=== PATIENT | male | born 1960 | race Two or more races ===

== ENCOUNTER 2021-02-06 10:03 | Outpatient (REF) | payer BC, SELFPAY ==
[2021-02-06 13:50] LABS: Hematocrit 46.4 % (42-52); Hemoglobin 15.7 g/dl (14.0-18.0); Mean Corpuscular HGB Conc 33.8 g/dl (31.0-36.0); Mean Corpuscular Hemoglobin 30.4 pg (27.0-33.0); Mean Corpuscular Volume 89.9 fL (80-98); Mean Platelet Volume 10.9 fL (9.4-12.4); Platelet Count 291 X10*3/uL (160-400); Red Blood Count 5.16 X10*6/uL (4.60-5.80); Red Cell Distribution Width 12.2 % (11.0-16.0); White Blood Count 9.3 X10*3/uL (4.8-10.8)
[2021-02-06 13:59] LABS: Estimated Average Glucose 303 mg/dL; Hemoglobin A1c % 12.2 %
[2021-02-06 14:02] LABS: Glucose Urine UA >=1000 MG/DL (NEG); Leukocyte Esterase Urine NEG (NEG); Nitrite Urine NEG (NEG); PH 5.5 (5.0-8.0); Specific Gravity - Urine 1.015 (1.005-1.025); Urine Blood NEG (NEG); Urine Ketones NEG (NEG); Urine Protein NEG (NEG-TRACE)
[2021-02-06 14:15] LABS: Appearance Urine CLEAR; Color Urine YELLOW
[2021-02-06 14:36] LABS: RBC Urine 0 /HPF (0); WBC Urine 0 /HPF (0-4)
[2021-02-06 14:42] LABS: Alanine Aminotransferase 55 U/L (0-40); Albumin Level 4.3 g/dL (3.5-5.0); Alkaline Phosphatase 76 U/L (39-117); Anion Gap 15 (12-20); Aspartate Amino Transferase 27 U/L (5-37); Bilirubin Direct 0.2 mg/dL (0.0-0.5); Bilirubin Total 0.4 mg/dL (0.0-1.0); Blood Urea Nitrogen 15 mg/dL (9-16); C Reactive Protein 0.62 mg/dL (< or = 0.50); Calcium 9.6 mg/dL (8.4-10.2); Carbon Dioxide 27 mmol/L (22-29); Chloride 99 mmol/L (96-108); Cholesterol 163 mg/dL; Estimated Glomerular Filt Rate 54; HDL Cholesterol 32 mg/dL; LDL Cholesterol Calculated 83 mg/dl; Potassium 4.9 mmol/L (3.3-5.1); Sodium 136 mmol/L (135-145); Total Protein 7.3 g/dL (6.5-8.0); Triglycerides 241 mg/dL
[2021-02-06 14:46] LABS: Glucose Random 466 mg/dL (60-115)
[2021-02-06 14:51] LABS: Thyroid Stimulating Hormone 1.64 uIU/mL (0.32-4.0)
[2021-02-10 14:21] LABS: Vitamin D 25-OH, D2 <4 ng/mL; Vitamin D 25-OH, D3 24 ng/mL; Vitamin D 25-OH, Total 24 ng/mL (30-100)
== END 2021-02-06 10:04 | disposition home or self-care (01) ==
LOC: HO.10HDL 10:03
PROVIDERS: Visit Provider Internal Medicine
DX: I10 Essential (primary) hypertension (principal); E11.65 Type 2 diabetes mellitus with hyperglycemia; E11.39 Type 2 diabetes mellitus with other diabetic ophthalmic complication
CPT/HCPCS: 36415; 80048; 80061; 80076; 81001; 81003; 82306; 83036; 84443; 85027; 86140

== ENCOUNTER 2023-04-17 13:31 | Outpatient (REF) | payer BC, SELFPAY ==
[2023-04-17 17:25] LABS: Urine Cytology See Pathology rpt
== END 2023-04-17 13:32 | disposition home or self-care (01) ==
LOC: HO.LAB 13:31
PROVIDERS: PCP Internal Medicine; Visit Provider Urology
DX: R31.29 Other microscopic hematuria (principal); N48.1 Balanitis
CPT/HCPCS: 88112

== ENCOUNTER 2023-04-22 07:46 | Outpatient (REF) | payer BC, SELFPAY ==
[2023-04-22 10:42] LABS: Appearance Urine Clear; Color Urine Yellow; Glucose Urine UA >=1000 mg/dL (Negative); Leukocyte Esterase Urine Negative (Negative); Nitrite Urine Negative (Negative); PH 5.5 (5.0-9.0); Specific Gravity - Urine 1.025 (1.005-1.025); UMIC TRIGGER UA YES; Urine Blood Negative (Negative); Urine Ketones Negative (Negative); Urine Protein Negative (Neg-Trace)
[2023-04-22 10:44] LABS: Bacteria Urine None Seen (None Seen); Hyaline Casts Urine 0-2 /LPF (0-2); RBC Urine 0-2 /HPF (0-2); Squamous Epithelial Cell Urine 0-2 /HPF (0-2); WBC Urine 0-5 /HPF (0-5)
[2023-04-22 11:50] LABS: PSA,Total (Free>4and<10) 0.54 ng/mL (0.00-4.00)
== END 2023-04-22 07:47 | disposition home or self-care (01) ==
LOC: HO.10HDL 07:46
PROVIDERS: Visit Provider Urology
DX: N48.1 Balanitis (principal); R31.29 Other microscopic hematuria; Z12.5 Encounter for screening for malignant neoplasm of prostate
CPT/HCPCS: 36415; 81001; 84153

== ENCOUNTER 2023-05-03 13:17 | Outpatient (REF) | payer BC, SELFPAY ==
--- NOTE | ~2023-05-03 | US_ITS ---
EXAMINATION: US RETROPERITONEAL COMPLETE (RENAL) CLINICAL INFORMATION: Other microscopic hematuria. COMPARISON: None available. TECHNIQUE: Real-time imaging of the kidneys and bladder. FINDINGS: RIGHT KIDNEY: 11.2 x 5.3 x 6.4 cm (SAG x AP x TRV). The kidney is normal in size, contour, and echogenicity. Renal cortical thickness is normal. No calculi or focal parenchymal lesions. No hydronephrosis. LEFT KIDNEY: 11.0 x 5.6 x 4.6 cm (SAG x AP x TRV). The kidney is normal in size, contour, and echogenicity. Renal cortical thickness is normal. No calculi or focal parenchymal lesions. No hydronephrosis. BLADDER: Well distended and normal. Bilateral ureteral jets are demonstrated. Prevoid bladder volume is 171.9 mL. Postvoid bladder volume is 4.8 mL. ADDITIONAL FINDINGS: The prostate measures 41 mL. US/US retroperitoneal comp IMPRESSION: Normal renal and bladder ultrasound. Enlarged prostate.
== END 2023-05-03 13:18 | disposition home or self-care (01) ==
LOC: HO.US 13:17
PROVIDERS: PCP Internal Medicine; Visit Provider Urology
DX: R31.29 Other microscopic hematuria (principal)
CPT/HCPCS: 76770

== ENCOUNTER 2023-05-03 14:31 | Outpatient (REF) | payer BC, SELFPAY ==
[2023-05-03 14:46] LABS: MANUAL DIFF FLAG NO
[2023-05-03 15:35] LABS: Basophils Absolute Auto 0.1 X10*3/uL (0.0-0.2); Basophils Percent Auto 0.7 % (0-2); Eosinophils Absolute Auto 0.2 X10*3/uL (0.0-0.4); Eosinophils Percent Auto 1.9 % (0-4); Hematocrit 46.9 % (42.0-52.0); Hemoglobin 15.4 g/dl (14.0-18.0); Imm Gran Abs Auto 0.08 X10*3/uL (0.00-0.03); Imm Gran Pct Auto 0.6 % (0.0-0.4); Lymphocytes Absolute Auto 2.6 X10*3/uL (1.2-4.9); Lymphocytes Percent Auto 20.2 % (20-40); Mean Corpuscular HGB Conc 32.8 g/dl (31.0-36.0); Mean Corpuscular Hemoglobin 30.6 pg (27.0-33.0); Mean Corpuscular Volume 93.1 fL (80.0-98.0); Mean Platelet Volume 9.8 fL (9.4-12.4); Monocytes Percent Auto 7.9 % (2-11); Neutrophils Absolute Auto 8.7 x10*3/uL (2.0-8.3); Neutrophils Percent Auto 68.7 % (45-73); Platelet Count 329 X10*3/uL (160-400); Red Blood Count 5.04 X10*6/uL (4.60-5.80); Red Cell Distribution Width 12.8 % (11.0-16.0); White Blood Count 12.6 X10*3/uL (4.8-10.8)
[2023-05-03 15:58] LABS: Alanine Aminotransferase 52 U/L (0-40); Albumin Level 4.2 g/dL (3.5-5.0); Alkaline Phosphatase 63 U/L (39-117); Anion Gap 13 (12-20); Aspartate Amino Transferase 29 U/L (5-37); Bilirubin Total 0.5 mg/dL (0.0-1.0); Blood Urea Nitrogen 17 mg/dL (9-16); Calcium 9.7 mg/dL (8.4-10.2); Carbon Dioxide 28 mmol/L (22-29); Chloride 101 mmol/L (96-108); Estimated Glomerular Filt Rate 56; Glucose Random 137 mg/dL (60-115); Potassium 4.3 mmol/L (3.3-5.1); Sodium 138 mmol/L (135-145)
== END 2023-05-03 14:32 | disposition home or self-care (01) ==
LOC: HO.LAB 14:31
PROVIDERS: PCP Internal Medicine; Visit Provider Nurse Practitioner
DX: Z01.818 Encounter for other preprocedural examination (principal); E11.39 Type 2 diabetes mellitus with other diabetic ophthalmic complication; E11.65 Type 2 diabetes mellitus with hyperglycemia; G47.33 Obstructive sleep apnea (adult) (pediatric); E66.9 Obesity, unspecified
CPT/HCPCS: 36415; 80053; 85025

== ENCOUNTER 2023-05-14 08:53 | Day surgery (SDC) | payer BC, SELFPAY ==
[2023-05-10 10:39] VITALS: BMI 30.6
--- NOTE | 2023-05-13 10:26 | HO.ANESPROP2 ---
Documented by User: Susan Galindo NP 05/13/23 10:28 HPI - Anesthesia Eval Consult details Narrative: 62yo M for Circumcision PMFSH Active Problems Active Problems: All Active Problems (Updated 05/03/23 @ 14:16 by DANIEL Mooney) Tubular adenoma of colon (Acute) Pre-op examination (Acute) Screening PSA (prostate specific antigen) (Acute) Microscopic hematuria (Acute) Balanitis (Acute) Obstructive sleep apnea (Acute) Hypercholesterolemia (Acute) Obesity (BMI 30.0-34.9) (Acute) Essential (primary) hypertension (Acute) DM (diabetes mellitus) type II uncontrolled with eye manifestation (Acute) Past Medical History Medical History DM (diabetes mellitus) type II uncontrolled with eye manifestation Essential (primary) hypertension Hypercholesterolemia Obstructive sleep apnea Family History Family History Mother No problems noted. Father No problems noted. 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 Cognitive needs: No Hearing needs: No Vision needs: Yes (Glasses) Meds Allergies Allergy/AdvReac Type Severity Reaction Status Date / Time penicillin V Allergy Unknown rash and Verified 05/14/23 10:05 fever tetracycline Allergy Unknown red rash Verified 05/14/23 10:05 on body and inflammation Exam Exam Date and Time: May 13, 2023 1026 Height,Weight and Vital Signs: Height 5 ft 8 in Weight 91.172 kg Pertinent Lab Results Pertinent Lab Results: Laboratory Tests 05/03/23 05/03/23 14:45 14:45 WBC 12.6 H Hgb 15.4 Hct 46.9 Plt Count 329 Sodium 138 Potassium 4.3 Chloride 101 Carbon Dioxide 28 BUN 17 H Creatinine 1.31 Assessment and Plan Assessment Anesthesia Assessment: Chart Reviewed Documented by User: Le Manjarrez MD 05/14/23 12:07 [facility] Past Medical History Medical History DM (diabetes mellitus) type II uncontrolled with eye manifestation Essential (primary) hypertension Hypercholesterolemia Obstructive sleep apnea Family History Family History Mother No problems noted. Father No problems noted. 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 Cognitive needs: No Hearing needs: No Vision needs: Yes (Glasses) Meds Allergies Allergy/AdvReac Type Severity Reaction Status Date / Time penicillin V Allergy Unknown rash and Verified 05/14/23 10:05 fever tetracycline Allergy Unknown red rash Verified 05/14/23 10:05 on body and inflammation Exam Airway Mallampati Class: II TM Dist: >3cm Neck ROM: Full Assessment and Plan Assessment Anesthesia Assessment: Anesthesia Plan Discussed Final Anesthetic Review Family History of Problems with Anesthesia: No History of Problems with Anesthesia: No NPO: Yes ASA Class: III Final Preanesthetic Review: No Changes in Pt Med Stat, Meds/Allgs Chart Reviewed, Consent Obtained/Reviewed and Anes Risks/Benef Reviewed Patient Risk: Intermediate Procedure Risk: Low Anesthetic Plan Anesthetic Plan: GA Disposition: Standard PACU
[2023-05-14] MEDS: Lactated Ringers 1,000 ML 100 ML IVCONT (10:11)
[2023-05-14 10:23] VITALS: BP 156/83; PULSE 77; RESP 18; TEMP 36.4; O2SAT 97
[2023-05-14 10:29] LABS: Glucose, Whole Blood 134 mg/dL (60-115)
--- NOTE | 2023-05-14 12:24 | MHC.SHP ---
Pre-Procedural Eval Section A Date of Service: 05/14/23 The patient is an INPATIENT: No The History & Physical has been completed within 30 days and I have reviewed it.: Yes Section B Chief Complaint: Balanitis Allergies: Allergies Allergy/AdvReac Type Severity Reaction Status Date / Time penicillin V Allergy Unknown rash and Verified 05/14/23 10:05 fever tetracycline Allergy Unknown red rash Verified 05/14/23 10:05 on body and inflammation Plan Diagnosis/Plan: Unchanged (Phimosis) I have reviewed the history and physical and performed a pertinent physical examination on my patient. No changes have occurred unless specified. Circumcision. risks discussed including, but not limited to infection, bleeding Time Spent With Patient Time: Total time managing care of this patient today ____ minutes.
[2023-05-14 14:05] VITALS: BP 140/88; PULSE 83; RESP 16; TEMP 36.2; O2SAT 99
[2023-05-14 14:10] VITALS: BP 134/87; PULSE 85; RESP 16; O2SAT 93
--- NOTE | 2023-05-14 14:13 | W.PM.OPN ---
Operative Note Operative Note Date of Service: 05/14/23 Narrative: PreOperative Diagnosis:? ? Balanitis, phimosis Post Operative Diagnosis:?Balanitis, phimosis Procedure:?Circumcision Surgeon:?Dr Crispin De Luna Anesthesia:? General Procedure: After informed consent was verified the patient was brought to the operating room and placed in a supine position.? Anesthesia was performed per protocol. The patient was prepped and draped in the usual sterile fashion. Safety pause time-out was performed. Antibiotics confirmed. Penile block was performed. With the foreskin over the glans a circumferential incision is made at the level of the roy. The fore skin was then retracted and a circumferential incision was made 0.5 cm below the roy. The foreskin is removed with cautery. The skin is closed in 4 quadrants with 4-0 chromic, each quadrant closed with interrupted 4-0 chromic, bacitracin ointment was used over the incision and incision covered with cling. The patient tolerated the procedure well and was transferred to the recovery area upon completion. Complications: None
[2023-05-14 14:15] VITALS: BP 128/85; PULSE 88; RESP 16; O2SAT 95
[2023-05-14 14:24] VITALS: BP 133/95; PULSE 89; RESP 16; O2SAT 94
[2023-05-14 14:39] VITALS: BP 150/98; PULSE 84; RESP 16; TEMP 36.2; O2SAT 96
== END 2023-05-14 15:08 | disposition home or self-care (01) ==
PROVIDERS: PCP Internal Medicine; Visit Provider Urology
PROC: (CPT 54161; principal; 2023-05-14 11:00)
DX: N48.1 Balanitis (principal); N47.1 Phimosis; R31.29 Other microscopic hematuria; I10 Essential (primary) hypertension; E78.00 Pure hypercholesterolemia, unspecified; G47.33 Obstructive sleep apnea (adult) (pediatric); E11.39 Type 2 diabetes mellitus with other diabetic ophthalmic complication; Z88.0 Allergy status to penicillin; Z88.1 Allergy status to other antibiotic agents
CPT/HCPCS: 54161; 82947; 88304; J0690; J2250; J2795; J3010

== ENCOUNTER → 2023-05-21 09:28 | Outpatient (BNVA) | payer BC, SELFPAY | PROVIDERS: PCP Internal Medicine; Visit Provider Urology ==

== ENCOUNTER 2023-07-10 07:30 | Outpatient (REF) | payer BC, SELFPAY ==
[2023-07-10 10:39] LABS: Appearance Urine Clear; Color Urine Dark Yellow; Glucose Urine UA 250 mg/dL (Negative); Leukocyte Esterase Urine Negative (Negative); Nitrite Urine Negative (Negative); PH 5.5 (5.0-9.0); Urine Blood Negative (Negative); Urine Ketones Trace mg/dL (Negative); Urine Protein Trace mg/dL (Neg-Trace)
[2023-07-10 10:44] LABS: Hematocrit 47.7 % (42.0-52.0); Hemoglobin 15.5 g/dl (14.0-18.0); Mean Corpuscular HGB Conc 32.5 g/dl (31.0-36.0); Mean Corpuscular Volume 92.3 fL (80.0-98.0); Mean Platelet Volume 10.3 fL (9.4-12.4); Platelet Count 359 X10*3/uL (160-400); Red Blood Count 5.17 X10*6/uL (4.60-5.80); Red Cell Distribution Width 12.6 % (11.0-16.0); White Blood Count 12.5 X10*3/uL (4.8-10.8)
[2023-07-10 11:15] LABS: Alanine Aminotransferase 41 U/L (0-40); Albumin Level 4.1 g/dL (3.5-5.0); Alkaline Phosphatase 59 U/L (39-117); Anion Gap 13 (12-20); Aspartate Amino Transferase 26 U/L (5-37); Bilirubin Direct 0.1 mg/dL (0.0-0.5); Bilirubin Total 0.3 mg/dL (0.0-1.0); Blood Urea Nitrogen 14 mg/dL (9-16); Calcium 9.7 mg/dL (8.4-10.2); Carbon Dioxide 28 mmol/L (22-29); Chloride 103 mmol/L (96-108); Cholesterol 145 mg/dL; Estimated Glomerular Filt Rate 59; Glucose Random 155 mg/dL (60-115); HDL Cholesterol 34 mg/dL; LDL Cholesterol Calculated 61 mg/dl; Potassium 3.9 mmol/L (3.3-5.1); Sodium 140 mmol/L (135-145); Total Protein 7.3 g/dL (6.5-8.0); Triglycerides 250 mg/dL
[2023-07-10 11:19] LABS: Creatinine Urine 211.54 mg/dL; Microalbum/Creatinine Ratio Ur 12.2 ug/mg cr
== END 2023-07-10 07:31 | disposition home or self-care (01) ==
LOC: HO.10HDL 07:30
PROVIDERS: Visit Provider Internal Medicine
DX: E11.39 Type 2 diabetes mellitus with other diabetic ophthalmic complication (principal); E11.65 Type 2 diabetes mellitus with hyperglycemia; N48.1 Balanitis
CPT/HCPCS: 36415; 80048; 80061; 80076; 81003; 82043; 84443; 85027

== ENCOUNTER 2023-07-11 13:16 | Outpatient (AMB) | payer BC, SELFPAY ==
--- NOTE | 2023-07-11 13:22 | MHC.PC.OV ---
Vital Signs 07/11/23 13:23 Height 5 ft 8 in Weight 199 lb BMI 30.3 BP 122/62 Blood Pressure Location Lt brachial Position Sitting Pulse 86 Pulse Source Pulse Oximeter Pulse Oximetry (%) 96 Oxygen Delivery Method Room Air Intake Visit Reasons: 3mth f/u Labs Intake Note: Patient is here to follow up on DM, HTN, Hypercholesterolemia. [place]ior Machine Tender Required: No Manager Market Development: Not Required per policy Accompanied by: Self / Same As Patient Allergies penicillin V Allergy (Unknown, Verified 07/11/23 13:30) rash and fever tetracycline Allergy (Unknown, Verified 07/11/23 13:30) red rash on body and inflammation empagliflozin [From Jardiance] Adverse Reaction (Intermediate, Verified 07/11/23 13:30) Abdominal Pain Tobacco use date assessed: 07/11/23 Dental Screening Dental Screen Date: 07/11/23 Did you have a dental visit in the last 12 months?: No Did you have a dental problem in the last 6 months where you did not have access to dental care?: No Was dental information given to patient?: No HPI 3mth f/u Labs HPI Details 62-year-old male presents to the office to discuss his medical issues. Patient reports that he had a successful circumcision since last office visit. The increased dosage of Jardiance was giving him cramping in the abdomen and he stopped taking the medication. He reports that his blood sugars have been in range. He is able to function and do all activities of daily living. His colonoscopy is scheduled for August of this year. [facility] Medical History DM (diabetes mellitus) type II uncontrolled with eye manifestation Essential (primary) hypertension Hypercholesterolemia Obstructive sleep apnea Surgical History H/O colonoscopy History of circumcision Family History Mother No problems noted. Father No problems noted. Social History Housing: House Alcohol intake: never Patient Tobacco Use Status: Never used Tobacco e-Cigarette/Vaping Use: Never Used Second Hand Smoke Exposure: No service: Yes Current occupational status: employed Current occupation: [email or web address] Cognitive needs: No Hearing needs: No Vision needs: Yes (Glasses) Questionnaire Thrive Questionnaire Date Thrive assessed: 01/08/23 HANDY-7 AMB Questionnaire HANDY-7 Date HANDY - 7 assessed: 01/08/23 Source: Developed by Drs. Slade Mckeon, Dot Lennon, Allen Drummond and colleagues, with an educational kerrie from [employer]. Physical exam (Primary Care) Vital Signs: Last Vital Signs Pulse 86 07/11/23 13:23 BP 122/62 07/11/23 13:23 Pulse Ox 96 07/11/23 13:23 Oxygen Delivery Method Room Air 07/11/23 13:23 Care Plan Goal for BP management: Blood pressure is in range. BMI result Body Mass Index 30.3 Tobacco/Smoking Status: Tobacco use Status Tobacco use date assessed 07/11/23 07/11/23 13:34 Patient Tobacco Use Status Never used Tobacco 07/11/23 13:34 e-Cigarette/Vaping Use Never Used 07/11/23 13:34 Thrive Assessment: Date of Thrive Assessment Date Thrive assessed 01/08/23 07/11/23 13:34 Const General: cooperative, healthy appearing and comfortable HENMT Head: Yes normal to inspection and Yes atraumatic Eyes General: appearance normal, both eyes and all related structures Neck Neck: Yes normal visual inspection and Yes full ROM Chest Chest palpation & inspection: normal inspection of the chest Resp Effort & Inspection: normal respiratory effort Auscultation: clear to auscultation bilaterally Cardio Jugular venous distension: no JVD Palpation: normal PMI Rate: regular rate Heart sounds: S1 normal heart sound present and S2 normal heart sound present GI Palpation (GI): Soft to palpation and No hepatosplenomegaly present Extrem General: Yes normal to inspection and Yes full ROM Results AMB Hemoglobin A1c AMB Hemoglobin A1c 7.2 % Last Edit by SERGEY Walker on 07/11/23 13:47 Assessment and Plan Assessment & Plan (1) DM (diabetes mellitus) type II uncontrolled with eye manifestation: Code(s): E11.39 - Type 2 diabetes mellitus with other diabetic ophthalmic complication; E11.65 - Type 2 diabetes mellitus with hyperglycemia Plan: Repeat A1c was 7.2. Patient was encouraged to take Jardiance at the lower dose. He has agreed to do so. Importance of diet and exercise explain. Patient had an eye exam done recently. (2) Essential (primary) hypertension: Code(s): I10 - Essential (primary) hypertension Plan Blood pressure is under control. Continue medications at same dosage. Orders: Orders AMB Hemoglobin A1c Today E11.39 - Type 2 diabetes mellitus with other diabetic ophthalmic complication, E11.65 - Type 2 diabetes mellitus with hyperglycemia Coding Level of Care Code Est Pt Level 4 (13740) Diagnoses DM (diabetes mellitus) type II uncontrolled with eye manifestation E11.39; E11.65 Essential (primary) hypertension I10
[2023-07-11 13:23] VITALS: BP 122/62; PULSE 86; O2SAT 96; BMI 30.3
== END 2023-07-11 13:44 | disposition home or self-care (01) ==
PROVIDERS: PCP Internal Medicine; Visit Provider Internal Medicine
DX: E11.39 Type 2 diabetes mellitus with other diabetic ophthalmic complication (principal); E11.65 Type 2 diabetes mellitus with hyperglycemia; I10 Essential (primary) hypertension
CPT/HCPCS: 83036; 99214

== ENCOUNTER 2023-10-17 13:35 | Outpatient (AMB) | payer BC, SELFPAY ==
--- NOTE | 2023-10-17 13:41 | MHC.PC.OV ---
Vital Signs 10/17/23 13:43 Height 5 ft 8 in Weight 198 lb 8 oz BMI 30.2 BP 110/64 Blood Pressure Location Lt brachial Position Sitting Pulse 92 Pulse Source Pulse Oximeter Pulse Oximetry (%) 96 Oxygen Delivery Method Room Air Intake Visit Reasons: 3mth f/u Intake Note: Patient is here to follow up on DM, HTN, FAITH, Hypercholesterolemia. Silk Hanger Required: No Tube Laser Operator: Not Required per policy Accompanied by: Self / Same As Patient Allergies penicillin V Allergy (Unknown, Verified 10/17/23 14:29) rash and fever tetracycline Allergy (Unknown, Verified 10/17/23 14:29) red rash on body and inflammation empagliflozin [From Jardiance] Adverse Reaction (Intermediate, Verified 10/17/23 14:29) Abdominal Pain Medication List - Last Reconciled 10/17/23 by Suraj Coon MD blood sugar diagnostic (Assurely Ultra Test strips) As directed 1-2 x daily blood-glucose meter (AcuFocusuch Ultra2 Meter) As directed 1-2 times daily dulaglutide (Trulicity) 0.75 mg (0.5 mL) subcut QWEEK empagliflozin (Jardiance) 20 mg (2 x 10 mg) PO DAILY lancets (OneTouch Delica Lancets) As directed 1-2x daily lisinopril 10 mg PO DAILY metformin 1,000 mg PO BID peg 3350-electrolytes 236-22.74-6.74 -5.86 gram (Golytely) 240 mL PO Q10M 1 day pioglitazone 15 mg PO DAILY Tobacco use date assessed: 10/17/23 HPI 3mth f/u HPI Details 62-year-old male presents to the office to discuss his chronic medical conditions. Patient is reporting left shoulder pain for the past week. No fall or injury prior to the onset of symptoms. Pain is worse when he sleeps on the left side or reaches above his shoulder. Occasional tingling sensation in the left shoulder. Patient is also complaining of a left hearing loss. He prefers to use the cell phone with the right ear. He is also keeping the TV unusually loud. No ringing in the ears. Patient underwent a circumcision. Continues to have sensitivity around the penis. Patient was also scheduled for a colonoscopy. He did the preliminary interview but was not called for the final procedure yet. [facility] Medical History Obstructive sleep apnea Hypercholesterolemia Essential (primary) hypertension DM (diabetes mellitus) type II uncontrolled with eye manifestation Surgical History History of circumcision H/O colonoscopy Family History Mother No problems noted. Father No problems noted. Social History Housing: House Alcohol intake: never Patient Tobacco Use Status: Never used Tobacco e-Cigarette/Vaping Use: Never Used Second Hand Smoke Exposure: No service: Yes Current occupational status: employed Current occupation: [employer] Cognitive needs: No Hearing needs: No Vision needs: Yes (Glasses) Questionnaire PHQ-9 Over the last 2 weeks, how often have you been bothered by any of the following problems? Depression Screening Interpretation: Negative Depression Screening Done: Yes Source: Developed by Drs. Slade Mckeon, Dot Lennon, Allen Drummond and colleagues, with an educational kerrie from [employer]. Thrive Questionnaire Date Thrive assessed: 01/08/23 Currently or been in a relationship where the following occur: no concerns reported HANDY-7 AMB Questionnaire HANDY-7 Date HANDY - 7 assessed: 01/08/23 Source: Developed by Drs. Slade Mckeon, Dot Lennon, Allen Drummond and colleagues, with an educational kerrie from [employer]. Physical exam (Primary Care) Vital Signs: Last Vital Signs Pulse 92 10/17/23 13:43 BP 110/64 10/17/23 13:43 Pulse Ox 96 10/17/23 13:43 Oxygen Delivery Method Room Air 10/17/23 13:43 Care Plan Goal for BP management: Blood pressure is in range. BMI result Body Mass Index 30.2 Tobacco/Smoking Status: Tobacco use Status Tobacco use date assessed 10/17/23 10/17/23 13:51 Patient Tobacco Use Status Never used Tobacco 10/17/23 13:51 e-Cigarette/Vaping Use Never Used 10/17/23 13:51 Depression Screening Interpretation: Negative Thrive Assessment: Date of Thrive Assessment Date Thrive assessed 01/08/23 10/17/23 13:51 Currently or been in a relationship where the following occur: no concerns reported Advance Care Planning discussion: Exists, not on file Date of discussion: 10/17/23 Who was present: Patient Forms completed: MOLST Time spent: 1-15 minutes, not on file Actual minutes spent: 15 Const General: cooperative and healthy appearing Nutritional Appearance: well nourished Orientation/consciousness: patient oriented x3 Limitations: no limitations HENMT Head: Yes normal to inspection Eyes General: appearance normal, both eyes and all related structures Neck Neck: Yes normal visual inspection Chest Chest palpation & inspection: normal palpation of entire chest wall Resp Effort & Inspection: normal respiratory effort Neuro General: patient oriented x3 Results AMB Hemoglobin A1c AMB Hemoglobin A1c 6.9 % Last Edit by SERGEY Walker on 10/17/23 13:55 Results Reviewed Results Reviewed: Laboratory Last Values Hgb A1c (Clinic) 6.9 % (4.0-6.0) H 10/17/23 13:40 Assessment and Plan Assessment & Plan (1) Obesity (BMI 30.0-34.9): Code(s): E66.9 - Obesity, unspecified Plan: Counseling on the importance of diet and exercise done. (2) Essential (primary) hypertension: Code(s): I10 - Essential (primary) hypertension Plan: Blood pressure is in range. Continue current medications. (3) DM (diabetes mellitus) type II uncontrolled with eye manifestation: Code(s): E11.39 - Type 2 diabetes mellitus with other diabetic ophthalmic complication; E11.65 - Type 2 diabetes mellitus with hyperglycemia Plan: A1c is 6.9. Continue current medications. (4) Sprain of right shoulder: Code(s): S43.401A - Unspecified sprain of right shoulder joint, initial encounter Plan: X-ray of the left shoulder ordered. Meloxicam ordered. Will follow-up. (5) Hearing loss in left ear: Code(s): H91.92 - Unspecified hearing loss, left ear Plan: Audiology testing ordered. Orders: Orders AMB Hemoglobin A1c Today E11.39 - Type 2 diabetes mellitus with other diabetic ophthalmic complication, E11.65 - Type 2 diabetes mellitus with hyperglycemia XR shoulder LT min 2V Today S43.402A - Unspecified sprain of left shoulder joint, initial encounter Referrals Audiology Referral H91.90 - Unspecified hearing loss, unspecified ear Medications: New meloxicam 15 mg PO DAILY 14 tabs 0RF Coding Level of Care Code Est Pt Level 4 (59670) Diagnoses Obesity (BMI 30.0-34.9) E66.9 Essential (primary) hypertension I10 DM (diabetes mellitus) type II uncontrolled with eye manifestation E11.39; E11.65 Sprain of right shoulder S43.401A Hearing loss in left ear H91.92 Additional Codes Vital Signs *Quality* - Advance Care Planning discussion: Exists, not on file ([id number]) Vital Signs *Quality* - Time spent: 1-15 minutes, not on file ([id number])
[2023-10-17 13:43] VITALS: BP 110/64; PULSE 92; O2SAT 96; BMI 30.2
== END 2023-10-17 14:26 | disposition home or self-care (01) ==
PROVIDERS: PCP Internal Medicine; Visit Provider Internal Medicine
DX: E11.39 Type 2 diabetes mellitus with other diabetic ophthalmic complication (principal); E11.65 Type 2 diabetes mellitus with hyperglycemia; E66.9 Obesity, unspecified; Z68.30 Body mass index [BMI] 30.0-30.9, adult; I10 Essential (primary) hypertension; S43.401A Unspecified sprain of right shoulder joint, initial encounter; H91.92 Unspecified hearing loss, left ear; Z00.00 Encounter for general adult medical examination without abnormal findings
CPT/HCPCS: 1124F; 83036; 99214

== ENCOUNTER 2024-02-13 09:56 | Outpatient (REF) | payer BC, SELFPAY | END 2024-02-13 09:57 | disposition home or self-care (01) | LOC: HO.SH 09:56 | PROVIDERS: Visit Provider Internal Medicine | DX: Z01.118 Encounter for examination of ears and hearing with other abnormal findings (principal); H90.3 Sensorineural hearing loss, bilateral | CPT/HCPCS: 92557; 92567 ==

== ENCOUNTER 2024-02-14 09:34 | Day surgery (SDC) | payer BC, SELFPAY ==
[2024-02-14 09:52] VITALS: BP 143/89; PULSE 75; RESP 20; TEMP 36.8; O2SAT 97
[2024-02-14 09:53] LABS: Glucose, Whole Blood 161 mg/dL (60-115)
--- NOTE | 2024-02-14 10:34 | MHC.SHP ---
Pre-Procedural Eval Section A - 24 Hr Update-Section A only Date of Service: 02/14/24 The patient is an INPATIENT: No The patient has been examined within 24 hours of the surgical procedure. The History & Physical has been completed within 30 days and I have reviewed it.: No Section B - Complete if H&P > 30 days Chief Complaint: Surveillance for colon polyps Relevant Family History (Specify if Yes): No Relevant Social History: None Present Medications: see Short Stay Collaborative assessment Medical History: Significant History (FAITH High cholesterol Hypertension Obesity Diabetes ) History of Previous Operations: Relevant previous surgery/procedure and date(s) (History of colonoscopy) Allergies: Allergies Allergy/AdvReac Type Severity Reaction Status Date / Time penicillin V Allergy Unknown rash and Verified 10/17/23 14:29 fever tetracycline Allergy Unknown red rash Verified 10/17/23 14:29 on body and inflammation empagliflozin AdvReac Intermediate Abdominal Verified 10/17/23 14:29 [From Jardiance] Pain Review of Systems Sugical H&P ROS: Negative: Constitution, Cardiovascular, Respiratory and Gastrointestinal Exam Surgical H&P Exam: Normal: Heart, Normal: Lungs, Normal: Extremities and Normal: Abdomen Plan Diagnosis/Plan: Unchanged I have reviewed the history and physical and performed a pertinent physical examination on my patient. No changes have occurred unless specified. Time Spent With Patient Time: Total time managing care of this patient today ____ minutes.
[2024-02-14] MEDS: Lactated Ringers 1,000 ML 50 ML IVCONT (10:46)
--- NOTE | 2024-02-14 11:13 | P.CONAN_ITS ---
[facility] Active Problems Active Problems: All Active Problems (Updated 05/03/23 @ 14:16 by DANIEL Mooney) Tubular adenoma of colon (Acute) Pre-op examination (Acute) Screening PSA (prostate specific antigen) (Acute) Microscopic hematuria (Acute) Balanitis (Acute) Obstructive sleep apnea (Acute) Hypercholesterolemia (Acute) Obesity (BMI 30.0-34.9) (Acute) Essential (primary) hypertension (Acute) DM (diabetes mellitus) type II uncontrolled with eye manifestation (Acute) Past Medical History Medical History Obstructive sleep apnea Hypercholesterolemia Essential (primary) hypertension DM (diabetes mellitus) type II uncontrolled with eye manifestation Family History Family History Mother No problems noted. Father No problems noted. 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 Cognitive needs: No Hearing needs: No Vision needs: Yes (Glasses) Meds Allergies Allergy/AdvReac Type Severity Reaction Status Date / Time penicillin V Allergy Unknown rash and Verified 10/17/23 14:29 fever tetracycline Allergy Unknown red rash Verified 10/17/23 14:29 on body and inflammation empagliflozin AdvReac Intermediate Abdominal Verified 10/17/23 14:29 [From Jardiance] Pain Active Medications: Current Medications Lactated Ringer's (Lr) 1,000 mls @ 50 mls/hr IVCONT .Q20H KALLI Last Admin: 02/14/24 10:46 Dose: 50 mls/hr Exam Height,Weight and Vital Signs: Height 5 ft 8 in Weight 89.358 kg Last Vital Signs Temp 98.3 F 02/14/24 09:52 Pulse 75 02/14/24 09:52 Resp 20 02/14/24 09:52 BP 143/89 H 02/14/24 09:52 Pulse Ox 97 02/14/24 09:52 O2 Del Method Room Air 02/14/24 09:52 Pertinent Lab Results Pertinent Lab Results: Laboratory Tests 02/14/24 09:48 POC Glucose 161 H Airway Mallampati Class: II TM Dist: >3cm Neck ROM: Full Heart: rrr Lungs: cta Assessment and Plan Assessment Anesthesia Assessment: Anesthesia Plan Discussed and Chart Reviewed Final Anesthetic Review Family History of Problems with Anesthesia: No History of Problems with Anesthesia: No NPO: Yes ASA Class: III Final Preanesthetic Review: No Changes in Pt Med Stat, Meds/Allgs Chart Reviewed and Consent Obtained/Reviewed Patient Risk: Low Procedure Risk: Low Anesthetic Plan Anesthetic Plan: MAC: Disposition: Standard PACU
--- NOTE | 2024-02-14 11:14 | W.PM.OPN ---
Operative Note Operative Note Date of Service: 02/14/24 Narrative: COLONOSCOPY TILL CECUM WITH SNARE POLYPECTOMY AND HEMOCLIP PLACEMENT Pre-op diagnosis: Surveillance for colon polyps. Post-op diagnosis:? Colon polyps, Diverticulosis, hemorrhoids Endoscopist:? Daniela Johnson MD Anesthesia:?MAC Consent: Indications for the procedure and potential complications of bleeding, perforation, reaction to medications and missed diagnosis were discussed with the patient and informed consent was obtained. Instrument: Olympus CF H 190 L variable stiffness adult colonoscope Monitoring: Vital signs and clinical assessment, intermittent blood pressure monitoring, continuous EKG monitoring, Pulse oximetry and Carbon Dioxide monitoring were done throughout the procedure. Please see anesthesia flowsheet. Colon withdrawl time was 16 minutes. Procedure: The patient was placed in the left lateral decubitis position and pre-procedure medications were administered. After a digital rectal examination of the ano-rectum, the video colonoscope was inserted into the rectum and advanced through the colon to the cecum. The colonoscope was slowly withdrawn in a retrograde panoramic fashion and the colon mucosa was carefully examined including a retroflexed view of the rectum. Findings and interventions are described below. Procedure Difficulty: without difficulty Findings: Terminal Ileum: Not evaluated Cecum: Normal Ascending Colon: A 15 - 18 mm sessile polyp in the distal AC/hepatic flexure. Polyp was removed with a hot snare and polypectomy site was closed with 1 hemoclip Transverse Colon: Normal Descending Colon: Moderate diverticulosis Sigmoid Colon: A 12 -15 mm sessile polyp at 25 cms - removed with a hot snare. Moderate diverticulosis Rectum: Normal Ano-rectum: Moderate internal hemorrhoids Colon preparation: Good after copious irrigation. [place] Bowel Preparation Scale Right colon; 2 Transverse colon: 2 Left colon; 2 (0 = Unprepared colon segment with mucosa not seen due to solid stool that cannot be cleared. 1 = Portion of mucosa of the colon segment seen, but other areas of the colon segment not well seen due to staining, residual stool and/or opaque liquid. 2 = Minor amount of residual staining, small fragments of stool and/or opaque liquid, but mucosa of colon segment seen well. 3 = Entire mucosa of colon segment seen well with no residual staining, small fragments of stool or opaque liquid) Impression and Post Procedure Diagnosis: Colonoscopy Findings: Two medium sized polyps were removed Moderate diverticulosis seen in the left colon Moderate hemorrhoids on retroflexed exam. Plan: Pt has a FU appointment on 3/29/24 with Liliana Toure NP Repeat Colonoscopy in 3 years if polyps are adenomatous and 10 year if polyps are hyperplastic (needs addition of Dulcolax for the prep and an adult colonoscope for future colonoscopies). Above findings were reviewed with the patient and relevant handouts were given and the discharge area.
[2024-02-14 11:58] VITALS: BP 107/74; PULSE 78; RESP 16; TEMP 36.2; O2SAT 94
[2024-02-14 12:13] VITALS: BP 129/86; PULSE 79; RESP 15; TEMP 36.4; O2SAT 97
[2024-02-14 12:25] VITALS: BP 132/86; PULSE 75; RESP 15; TEMP 36.4; O2SAT 98
== END 2024-02-14 12:35 | disposition home or self-care (01) ==
PROVIDERS: PCP Internal Medicine; Visit Provider Internal Medicine Gastroenterology
PROC: 0DJD8ZZ Inspection of Lower Intestinal Tract, Via Natural or Artificial Opening Endoscopic (ICD-10-PCS; CPT 45378; principal; 2024-02-14 11:20)
DX: Z12.11 Encounter for screening for malignant neoplasm of colon (principal); Z86.010 Personal history of colon polyps; D12.2 Benign neoplasm of ascending colon; K63.5 Polyp of colon; K57.30 Diverticulosis of large intestine without perforation or abscess without bleeding; K64.8 Other hemorrhoids; G47.33 Obstructive sleep apnea (adult) (pediatric); I10 Essential (primary) hypertension; E78.00 Pure hypercholesterolemia, unspecified; E11.39 Type 2 diabetes mellitus with other diabetic ophthalmic complication; E11.65 Type 2 diabetes mellitus with hyperglycemia; E66.9 Obesity, unspecified; Z68.30 Body mass index [BMI] 30.0-30.9, adult; Z79.84 Long term (current) use of oral hypoglycemic drugs; Z79.85 Long-term (current) use of injectable non-insulin antidiabetic drugs; Z79.899 Other long term (current) drug therapy; Z88.0 Allergy status to penicillin; Z88.1 Allergy status to other antibiotic agents; Z88.8 Allergy status to other drugs, medicaments and biological substances
CPT/HCPCS: 45385; 82947; 88305; J2704

== ENCOUNTER → 2024-02-14 09:34 | Outpatient (BNV) | payer BC, SELFPAY | PROVIDERS: PCP Internal Medicine; Visit Provider Internal Medicine Gastroenterology | DX: Z12.11 Encounter for screening for malignant neoplasm of colon (principal); Z86.010 Personal history of colon polyps; D12.2 Benign neoplasm of ascending colon; K64.8 Other hemorrhoids | CPT/HCPCS: 45385 ==

== ENCOUNTER 2024-04-16 14:46 | Outpatient (AMB) | payer BC, SELFPAY ==
--- NOTE | 2024-04-16 14:52 | MHC.PC.OV ---
Vital Signs 04/16/24 14:54 Height 5 ft 8 in Weight 200 lb BMI 30.4 BP 112/64 Blood Pressure Location Lt brachial Position Sitting Pulse 89 Pulse Source Pulse Oximeter Pulse Oximetry (%) 98 Oxygen Delivery Method Room Air Intake Visit Reasons: 6mth f/u Intake Note: Patient is here to follow up on FAITH, HTN, DM. Hooker Up Required: No Key Ringer: Not Required per policy Accompanied by: Self / Same As Patient Allergies penicillin V Allergy (Unknown, Verified 04/17/24 14:07) rash and fever tetracycline Allergy (Unknown, Verified 04/17/24 14:07) red rash on body and inflammation empagliflozin [From Jardiance] Adverse Reaction (Intermediate, Verified 04/17/24 14:07) Abdominal Pain Medication List - Last Reconciled 04/17/24 by Suraj Coon MD dulaglutide (Trulicity) 0.75 mg (0.5 mL) subcut QWEEK empagliflozin (Jardiance) 20 mg (2 x 10 mg) PO DAILY lisinopril 10 mg PO DAILY metformin 1,000 mg PO BID pioglitazone 15 mg PO DAILY Tobacco use date assessed: 04/16/24 Dental Screening Dental Screen Date: 04/16/24 Did you have a dental visit in the last 12 months?: No Did you have a dental problem in the last 6 months where you did not have access to dental care?: No Was dental information given to patient?: No HPI 6mth f/u HPI Details 63 yr old male presents to the office to discuss his chronic medical conditions. Pt continues to have pain in the left shoulder. Sx started after he recvd the flu vaccine. Pain around the muscle which has now radiated into the shoulder joint. Unable to keep the arms over the shoulder level for prolonged periods. He got some relief with Meloxicam that he took for 14 days. Not compliant with diet or exercise. Not checking his sugars regularly. [facility], [facility] Medical History Obstructive sleep apnea Hypercholesterolemia Essential (primary) hypertension DM (diabetes mellitus) type II uncontrolled with eye manifestation Surgical History History of circumcision H/O colonoscopy Family History Mother No problems noted. Father No problems noted. Social History Housing: House Alcohol intake: never Patient Tobacco Use Status: Never used Tobacco e-Cigarette/Vaping Use: Never Used Second Hand Smoke Exposure: No service: Yes Current occupational status: employed Current occupation: [employer] Cognitive needs: No Hearing needs: No Vision needs: Yes (Glasses) Questionnaire PHQ-9 Over the last 2 weeks, how often have you been bothered by any of the following problems? 1. Little interest or pleasure in doing things: not at all 2. Feeling down, depressed, or hopeless: not at all 3. Trouble falling or staying asleep, or sleeping too much: not at all 4. Feeling tired or having little energy: not at all 5. Poor appetite or overeating: not at all 6. Feeling bad about yourself - or that you are a failure or have let yourself or your family down: not at all 7. Trouble concentrating on things, such as reading the newspaper or watching television: not at all 8. Moving or speaking so slowly that other people could have noticed. Or the opposite - being so fidgety or restless that you have been moving around a lot more than usual: not at all 9. Thoughts that you would be better off or of hurting yourself in some way: not at all Total score: 0 Depression Screening Interpretation: Negative Depression Screening Done: Yes Source: Developed by Drs. Slade Mckeon, Dot Lennon, Allen Drummond and colleagues, with an educational kerrie from [employer]. Thrive Questionnaire Date Thrive assessed: 04/16/24 I am a: Patient What is your living situation today?: I have a steady place to live Within the past 12 months, did the food you bought not last and you didn't have the money to get more?: Never true Within the past 12 months, did you worry whether your food would run out before you got money to buy more?: Never true Do you have trouble paying for medicines?: No Do you have trouble getting transportation to medical appointments?: No Do you have trouble paying your heating and electricity bill?: No Do you have trouble taking care of your child, family member or friend?: No Do you have trouble with day-to-day activities such as bathing, preparing meals, shopping, managing finances, etc.?: No Are you currently unemployed and looking for a job?: No Are you interested in more education?: No Currently or been in a relationship where the following occur: no concerns reported THRIVE Score: 0 AUDIT C Alcohol Use Questionnaire (AUDIT-C) 1. How often do you have a drink containing alcohol?: Never Total Score: 0 HANDY-7 AMB Questionnaire HANDY-7 Date HANDY - 7 assessed: 04/16/24 Feeling nervous, anxious, or on edge: 0 = Not at all Not being able to stop or control worryin = Not at all Worrying too much about different things: 0 = Not at all Trouble relaxin = Not at all Being so restless that it is hard to sit still: 0 = Not at all Becoming easily annoyed or irritable: 0 = Not at all Feeling afraid as if something awful might happen: 0 = Not at all Total HANDY-7 score (0-4 normal; 5-9 mild; 10-14 moderate; 15-21 severe): 0 Source: Developed by Drs. Slade Mckeon, Dot Lennon, Allen Drummond and colleagues, with an educational kerrie from [employer]. Physical exam (Primary Care) Vital Signs: Last Vital Signs Pulse 89 04/16/24 14:54 BP 112/64 04/16/24 14:54 Pulse Ox 98 04/16/24 14:54 Oxygen Delivery Method Room Air 04/16/24 14:54 BMI result Body Mass Index 30.4 Tobacco/Smoking Status: Tobacco use Status Tobacco use date assessed 04/16/24 04/16/24 15:01 Patient Tobacco Use Status Never used Tobacco 04/16/24 15:01 e-Cigarette/Vaping Use Never Used 04/16/24 15:01 PHQ-9: PHQ-9 Score PHQ-9: Total score 0 04/16/24 15:33 Depression Screening Interpretation: Negative Thrive Assessment: Date of Thrive Assessment Date Thrive assessed 04/16/24 04/16/24 15:01 Currently or been in a relationship where the following occur: no concerns reported Const General: cooperative and healthy appearing Nutritional Appearance: well nourished Orientation/consciousness: patient oriented x3 Limitations: no limitations HENMT Head: Yes normal to inspection Eyes General: appearance normal, both eyes and all related structures Neck Neck: Yes normal visual inspection Chest Chest palpation & inspection: normal palpation of entire chest wall Resp Effort & Inspection: normal respiratory effort Neuro General: patient oriented x3 Extrem Other: Left shoulder: No AC joint tenderness. ROM: Pain on elevation of arm over shoulder level Results AMB Hemoglobin A1c AMB Hemoglobin A1c 7.3 % Last Edit by SERGEY Walker on 04/16/24 15:04 Results Reviewed Results Reviewed: Laboratory Last Values Hgb A1c (Clinic) 7.3 % (4.0-6.0) H 04/16/24 14:52 Assessment and Plan Assessment & Plan (1) DM (diabetes mellitus) type II uncontrolled with eye manifestation: Code(s): E11.39 - Type 2 diabetes mellitus with other diabetic ophthalmic complication; E11.65 - Type 2 diabetes mellitus with hyperglycemia Plan: Blood work shows elevated A1c. Encouraged to pay attention to his diet. Continue medications at the same dosage. (2) Sprain of left acromioclavicular joint: Code(s): S43.52XA - Sprain of left acromioclavicular joint, initial encounter Plan: Xr of the shoulder ordered. Unlikely any relation to the flu vaccine he recvd. Orders: Orders AMB Hemoglobin A1c 04/16/24 E11.39 - Type 2 diabetes mellitus with other diabetic ophthalmic complication, E11.65 - Type 2 diabetes mellitus with hyperglycemia Coding Level of Care Code Est Pt Level 4 (18899) Diagnoses DM (diabetes mellitus) type II uncontrolled with eye manifestation E11.39; E11.65 Sprain of left acromioclavicular joint S43.52XA
[2024-04-16 14:54] VITALS: BP 112/64; PULSE 89; O2SAT 98; BMI 30.4
== END 2024-04-16 15:45 | disposition home or self-care (01) ==
PROVIDERS: PCP Internal Medicine; Visit Provider Internal Medicine
DX: E11.39 Type 2 diabetes mellitus with other diabetic ophthalmic complication (principal); E11.65 Type 2 diabetes mellitus with hyperglycemia
CPT/HCPCS: 83036; 99214

== ENCOUNTER 2024-04-16 15:50 | Outpatient (REF) | payer BC, SELFPAY ==
--- NOTE | ~2024-04-16 | XR_ITS ---
EXAMINATION: XR SHOULDER, LEFT CLINICAL INFORMATION: Sprain of left shoulder joint COMPARISON: None available. TECHNIQUE: AP external rotation, Grashey, scapular Y, and axillary views of the left shoulder. FINDINGS: To moderate osteoarthritis of acromioclavicular joint manifested by marginal osteophytes and subchondral cysts. Glenohumeral joint: Normal. Surrounding bone and soft tissues unremarkable. XR/XR shoulder LT min 2V IMPRESSION: Moderate osteoarthritis of the acromioclavicular joint.
== END 2024-04-16 15:51 | disposition home or self-care (01) ==
LOC: HO.XRAY 15:50
PROVIDERS: PCP Internal Medicine; Visit Provider Internal Medicine
DX: S43.402A Unspecified sprain of left shoulder joint, initial encounter (principal)
CPT/HCPCS: 73030

== ENCOUNTER 2024-10-12 07:57 | Outpatient (REF) | payer BC, SELFPAY ==
[2024-10-12 09:15] LABS: Hematocrit 47.1 % (42.0-52.0); Hemoglobin 15.9 g/dl (14.0-18.0); Mean Corpuscular HGB Conc 33.8 g/dl (31.0-36.0); Mean Corpuscular Hemoglobin 30.8 pg (27.0-33.0); Mean Corpuscular Volume 91.3 fL (80.0-98.0); Mean Platelet Volume 8.8 fL (9.4-12.4); Platelet Count 351 X10*3/uL (160-400); Red Blood Count 5.16 X10*6/uL (4.60-5.80); Red Cell Distribution Width 12.9 % (11.0-16.0); White Blood Count 12.1 X10*3/uL (4.8-10.8)
[2024-10-12 09:15] LABS: Appearance Urine Clear; Color Urine Yellow; Glucose Urine UA >=1000 mg/dL (Negative); Leukocyte Esterase Urine Negative (Negative); Nitrite Urine Negative (Negative); PH 5.5 (5.0-9.0); Specific Gravity - Urine 1.025 (1.005-1.025); UMIC TRIGGER UA YES; Urine Blood Negative (Negative); Urine Ketones Negative (Negative); Urine Protein Negative (Neg-Trace)
[2024-10-12 09:20] LABS: Bacteria Urine None Seen (None Seen); Hyaline Casts Urine 0-2 /LPF (0-2); RBC Urine 0-2 /HPF (0-2); Squamous Epithelial Cell Urine 0-2 /HPF (0-2); WBC Urine 0-5 /HPF (0-5)
[2024-10-12 09:49] LABS: Alanine Aminotransferase 44 U/L (0-40); Albumin Level 4.4 g/dL (3.5-5.0); Alkaline Phosphatase 60 U/L (39-117); Anion Gap 13 (12-20); Aspartate Amino Transferase 28 U/L (5-37); Bilirubin Direct 0.1 mg/dL (0.0-0.5); Bilirubin Total 0.4 mg/dL (0.0-1.0); Blood Urea Nitrogen 22 mg/dL (9-16); Calcium 9.6 mg/dL (8.4-10.2); Carbon Dioxide 27 mmol/L (22-29); Chloride 105 mmol/L (96-108); Cholesterol 155 mg/dL (<200); Estimated Glomerular Filt Rate 57; Glucose Random 138 mg/dL (60-115); HDL Cholesterol 34 mg/dL (>40); LDL Cholesterol Calculated 76 mg/dL (<100); Potassium 4.6 mmol/L (3.3-5.1); Sodium 140 mmol/L (135-145); Total Protein 7.8 g/dL (6.5-8.0); Triglycerides 229 mg/dL (<150)
[2024-10-12 09:55] LABS: Erythrocyte Sedimentation Rate 12 MM/HR (0-15)
[2024-10-12 10:12] LABS: Thyroid Stimulating Hormone 1.26 uIU/mL (0.32-4.0)
== END 2024-10-12 07:58 | disposition home or self-care (01) ==
LOC: HO.LAB 07:57
PROVIDERS: PCP Internal Medicine; Visit Provider Internal Medicine
DX: I10 Essential (primary) hypertension (principal); E11.65 Type 2 diabetes mellitus with hyperglycemia; E11.39 Type 2 diabetes mellitus with other diabetic ophthalmic complication; Z12.5 Encounter for screening for malignant neoplasm of prostate
CPT/HCPCS: 36415; 80048; 80061; 80076; 81001; 83036; 84153; 84443; 85027; 85652

== ENCOUNTER 2024-10-12 07:57 | Outpatient (AMB) | payer BC, SELFPAY ==
--- NOTE | 2024-10-12 07:59 | MHC.PC.OV ---
Vital Signs 10/12/24 08:01 Height 5 ft 8 in Weight 199 lb 8 oz BMI 30.3 BP 130/76 Blood Pressure Location Lt brachial Position Sitting Pulse 82 Pulse Source Pulse Oximeter Pulse Oximetry (%) 97 Oxygen Delivery Method Room Air Intake Visit Reasons: 3 month f/u Intake Note: Patient is here to follow up on DM, HTN, Hypercholesterolemia. Pt decline flu shot today. Hand Rounder Required: No Automotive Manager: Not Required per policy Accompanied by: Self / Same As Patient Allergies penicillin V Allergy (Unknown, Verified 10/12/24 08:30) rash and fever tetracycline Allergy (Unknown, Verified 10/12/24 08:30) red rash on body and inflammation empagliflozin [From Jardiance] Adverse Reaction (Intermediate, Verified 10/12/24 08:30) Abdominal Pain Medication List - Last Reconciled 10/12/24 by Suraj Coon MD dulaglutide (Trulicity) 0.75 mg (0.5 mL) subcut QWEEK lisinopril 10 mg PO DAILY metformin 1,000 mg PO BID pioglitazone 15 mg PO DAILY Tobacco use date assessed: 10/12/24 Dental Screening Dental Screen Date: 04/16/24 HPI 3 month f/u HPI Details 63-year-old male presents to the office to discuss his chronic medical conditions. Patient continues to have intermittent pain in the left shoulder. Patient tried anti-inflammatories with minimal relief. Symptoms are worse with movement of the arm over the shoulder level. Similar complaints of pain over the right elbow. Has stopped taking Jardiance. Does not check his blood sugars at home. Not following any particular exercise or dietary regimen. Able to function and do all activities of daily living. [facility] Medical History (Updated 10/12/24 @ 08:40 by Suraj Coon MD) Osteoarthritis of left shoulder Obstructive sleep apnea Hypercholesterolemia Essential (primary) hypertension DM (diabetes mellitus) type II uncontrolled with eye manifestation Surgical History History of circumcision H/O colonoscopy (~02/13/24) Family History Mother No problems noted. Father No problems noted. Social History Housing: House Alcohol intake: never Patient Tobacco Use Status: Never used Tobacco e-Cigarette/Vaping Use: Never Used Second Hand Smoke Exposure: No service: Yes Current occupational status: employed Current occupation: [employer] Cognitive needs: No Hearing needs: No Vision needs: Yes (Glasses) Questionnaire Thrive Questionnaire Date Thrive assessed: 04/16/24 HANDY-7 AMB Questionnaire HANDY-7 Date HANDY - 7 assessed: 04/16/24 Source: Developed by Drs. Slade Mckeon, Dot Lennon, Allen Drummond and colleagues, with an educational kerrie from [employer]. Physical exam (Primary Care) Vital Signs: Last Vital Signs Pulse 82 10/12/24 08:01 BP 130/76 10/12/24 08:01 Pulse Ox 97 10/12/24 08:01 Oxygen Delivery Method Room Air 10/12/24 08:01 BMI result Body Mass Index 30.3 Tobacco/Smoking Status: Tobacco use Status Tobacco use date assessed 10/12/24 10/12/24 08:09 Patient Tobacco Use Status Never used Tobacco 10/12/24 08:09 e-Cigarette/Vaping Use Never Used 10/12/24 08:09 Thrive Assessment: Date of Thrive Assessment Date Thrive assessed 04/16/24 10/12/24 08:09 Const General: cooperative and healthy appearing Nutritional Appearance: well nourished Orientation/consciousness: patient oriented x3 Limitations: no limitations HENMT Head: Yes normal to inspection Eyes General: appearance normal, both eyes and all related structures Neck Neck: Yes normal visual inspection Chest Chest palpation & inspection: normal palpation of entire chest wall Resp Effort & Inspection: normal respiratory effort Neuro General: patient oriented x3 Extrem Other: Right elbow: Tenderness over the lateral epicondyle. Minimal discomfort on flexion. Left shoulder: No AC joint tenderness. Results AMB Hemoglobin A1c AMB Hemoglobin A1c 7.4 % Last Edit by SERGEY Walker on 10/12/24 08:28 Coding Level of Care Code Est Pt Level 4 (01278) Complex EM visit Add On G2211 Diagnoses DM (diabetes mellitus) type II uncontrolled with eye manifestation E11.39; E11.65 Essential (primary) hypertension I10 Osteoarthritis of left shoulder M19.012 Assessment & Plan Assessment & Plan (1) DM (diabetes mellitus) type II uncontrolled with eye manifestation: Code(s): E11.39 - Type 2 diabetes mellitus with other diabetic ophthalmic complication; E11.65 - Type 2 diabetes mellitus with hyperglycemia Category: Medical Plan: A1c is greater than 7. Patient was informed of the results. Compliant with medication and diet urged. If sugars continues to increase, we will consider injectables. (2) Essential (primary) hypertension: Code(s): I10 - Essential (primary) hypertension Category: Medical Plan: Blood pressure is in range. Continue medications at same dosage. Call patient: Scheduled office visit to discuss this matter further. Okay to double book. (3) Osteoarthritis of left shoulder: Code(s): M19.012 - Primary osteoarthritis, left shoulder Category: Medical Plan: X-ray of the shoulder reviewed again. Osteoarthritis changes seen. Orthopedic appointment to determine if a steroid injection would help. Right elbow tenderness is more due to tendinitis. Advised him rest and heating pad. Meloxicam has been added to the regimen. Orders: Orders AMB Hemoglobin A1c Today E11.39 - Type 2 diabetes mellitus with other diabetic ophthalmic complication, E11.65 - Type 2 diabetes mellitus with hyperglycemia UA and rflx microscopic Today E11.39 - Type 2 diabetes mellitus with other diabetic ophthalmic complication, E11.65 - Type 2 diabetes mellitus with hyperglycemia Prostate Specific Antigen Scr Today E11.39 - Type 2 diabetes mellitus with other diabetic ophthalmic complication, E11.65 - Type 2 diabetes mellitus with hyperglycemia Complete Blood Count no Diff Today E11.39 - Type 2 diabetes mellitus with other diabetic ophthalmic complication, E11.65 - Type 2 diabetes mellitus with hyperglycemia Basic Metabolic Panel Today E11.39 - Type 2 diabetes mellitus with other diabetic ophthalmic complication, E11.65 - Type 2 diabetes mellitus with hyperglycemia Lipid Panel Today E11.39 - Type 2 diabetes mellitus with other diabetic ophthalmic complication, E11.65 - Type 2 diabetes mellitus with hyperglycemia Liver Panel Today E11.39 - Type 2 diabetes mellitus with other diabetic ophthalmic complication, E11.65 - Type 2 diabetes mellitus with hyperglycemia Thyroid Stimulating Hormone Today E11.39 - Type 2 diabetes mellitus with other diabetic ophthalmic complication, E11.65 - Type 2 diabetes mellitus with hyperglycemia Erythrocyte Sedimentation Rate Today I10 - Essential (primary) hypertension
[2024-10-12 08:01] VITALS: BP 130/76; PULSE 82; O2SAT 97; BMI 30.3
== END 2024-10-12 08:30 | disposition home or self-care (01) ==
PROVIDERS: PCP Internal Medicine; Visit Provider Internal Medicine
DX: E11.39 Type 2 diabetes mellitus with other diabetic ophthalmic complication (principal); E11.65 Type 2 diabetes mellitus with hyperglycemia; I10 Essential (primary) hypertension; M19.012 Primary osteoarthritis, left shoulder

== ENCOUNTER 2024-11-11 15:08 | Outpatient (AMB) | payer BC, SELFPAY ==
--- NOTE | 2024-11-11 15:26 | A.OFFPC_ITS ---
Vital Signs 11/11/24 15:27 Height 5 ft 8 in Weight 200 lb 8 oz BMI 30.5 BP 112/70 Blood Pressure Location Lt brachial Position Sitting Pulse 92 Pulse Source Pulse Oximeter Pulse Oximetry (%) 98 Oxygen Delivery Method Room Air Intake Visit Reasons: Chest pain, Sinus Congestion and coughing Intake Note: Patient is here to follow up on pain in upper right back, Sinus congestion, productive Coughing, fever, chills, ongoing for two weeks. Home covid was negative. Request for excuse note for work. Ham Stringer Required: No Pancake Professional: Not Required per policy Accompanied by: Self / Same As Patient Allergies penicillin V Allergy (Unknown, Verified 11/11/24 15:27) rash and fever tetracycline Allergy (Unknown, Verified 11/11/24 15:27) red rash on body and inflammation empagliflozin [From Jardiance] Adverse Reaction (Intermediate, Verified 11/11/24 15:27) Abdominal Pain Tobacco use date assessed: 11/11/24 Dental Screening Dental Screen Date: 04/16/24 HPI HPI Comments History of Present Illness Details Patient presents for a sick visit. Reporting symptoms of sinus congestion, sore throat and difficulty swallowing. Low-grade fever. No family member is sick. No recent travel. Patient reports symptoms of malaise and fatigue. COUNTS INCLUDE 234 BEDS AT THE [facility] Medical History (Updated 10/12/24 @ 08:40 by Suraj Coon MD) Osteoarthritis of left shoulder Obstructive sleep apnea Hypercholesterolemia Essential (primary) hypertension DM (diabetes mellitus) type II uncontrolled with eye manifestation Surgical History History of circumcision H/O colonoscopy (~02/13/24) Family History Mother No problems noted. Father No problems noted. 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 Slade Mkceon, Dot Lennon, Allen Drummond and colleagues, with an educational kerrie from [employer]. Physical exam (Primary Care) Vital Signs: Last Vital Signs Pulse 92 11/11/24 15:27 BP 112/70 11/11/24 15:27 Pulse Ox 98 11/11/24 15:27 Oxygen Delivery Method Room Air 11/11/24 15:27 BMI result Body Mass Index 30.5 Tobacco/Smoking Status: Tobacco use Status Tobacco use date assessed 11/11/24 11/11/24 15:32 Patient Tobacco Use Status Never used Tobacco 11/11/24 15:32 e-Cigarette/Vaping Use Never Used 11/11/24 15:32 Thrive Assessment: Date of Thrive Assessment Date Thrive assessed 04/16/24 11/11/24 15:32 Const General: cooperative and healthy appearing Nutritional Appearance: well nourished Orientation/consciousness: patient oriented x3 Limitations: no limitations HENMT Head: Yes normal to inspection Eyes General: appearance normal, both eyes and all related structures Neck Neck: Yes normal visual inspection Chest Chest palpation & inspection: normal palpation of entire chest wall Resp Effort & Inspection: normal respiratory effort Neuro General: patient oriented x3 Coding Level of Care Code Est Pt Level 3 (92191) Complex EM visit Add On G2211 Diagnoses Upper respiratory tract infection J06.9 Assessment & Plan Assessment & Plan (1) Upper respiratory tract infection: Code(s): J06.9 - Acute upper respiratory infection, unspecified Plan: Antibiotics ordered. Increase fluid intake. Tylenol for aches and pains. If symptoms worsen, follow-up here for a recheck.
[2024-11-11 15:27] VITALS: BP 112/70; PULSE 92; O2SAT 98; BMI 30.5
== END 2024-11-11 16:02 | disposition home or self-care (01) ==
PROVIDERS: PCP Internal Medicine; Visit Provider Internal Medicine
DX: J06.9 Acute upper respiratory infection, unspecified (principal)

== ENCOUNTER 2024-11-16 10:33 | Outpatient (AMB) | payer BC, SELFPAY ==
--- NOTE | 2024-11-16 10:34 | A.OFFVIS_ITS ---
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 Hx of DM. Tried and failed NSAIDs. Patient reports that he has pain at rest and increasing pain with ROM, particularly above shoulder height. 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 She denies injury but states he is having a hard time sleeping at night and doing overhead lifting. He describes pain radiating down to his elbow. He has been taking non steroid anti-inflammatory medications but these have not been helpful. He has otherwise not been treated. [facility] Medical History Osteoarthritis of left shoulder Obstructive sleep apnea Hypercholesterolemia Essential (primary) hypertension DM (diabetes mellitus) type II uncontrolled with eye manifestation Surgical History History of circumcision H/O colonoscopy (~02/13/24) Family History Mother No problems noted. Father No problems noted. Social History Housing: House Alcohol intake: never Patient Tobacco Use Status: Never used Tobacco e-Cigarette/Vaping Use: Never Used Second Hand Smoke Exposure: No service: Yes Current occupational status: employed Current occupation: [employer] Cognitive needs: No Hearing needs: No Vision needs: Yes (Glasses) Physical Exam Vital Signs: BMI result Body Mass Index 30.4 Extrem Other: 35/90/120/L5 Negative empty can Positive [place]uerre and [facility] Office Procedures Joint Inj/Aspir; Non-Pain Clin Joint Injection/Drain Details: Injected 1 mL of Decadron and 3 mL 1% lidocaine and 3 mL of 0.25% Marcaine. Site was prepped using aseptic technique. Patient tolerated the procedure well. Approach Used: posterolateral Shoulders, Hips, Knees, Shoulder Injection Large joint 67253: Left Shoulder Coding Procedure code (CPT) selection complete Results Reviewed Results Reviewed: I personally reviewed relevant radiographs. Mild glenohumeral and AC joint OA with otherwise unremarkable radiographs Assessment & Plan Assessment & Plan (1) Bursitis of left shoulder: Code(s): M75.52 - Bursitis of left shoulder Category: Medical Plan: Left shoulder bursitis/painful arc syndrome. I injected his left shoulder. I explained to him the hyperglycemic effects of steroids. I also recommend physical therapy. If his pain persists after physical therapy he can return to see me. (2) DM (diabetes mellitus) type II uncontrolled with eye manifestation: Code(s): E11.39 - Type 2 diabetes mellitus with other diabetic ophthalmic complication; E11.65 - Type 2 diabetes mellitus with hyperglycemia Category: Medical Plan: I explained the hyperglycemic effects of steroids. Orders: Orders PT Evaluation and Treatment Today M75.52 - Bursitis of left shoulder Coding Level of Care Code New Pt Level 4 (76161) Diagnoses Bursitis of left shoulder M75.52 DM (diabetes mellitus) type II uncontrolled with eye manifestation E11.39; E11.65 CPT Codes Shoulders, Hips, Knees, - Shoulder Injection Large joint 31229: Left Shoulder ([id number])
[2024-11-16 10:39] VITALS: BMI 30.4
== END 2024-11-16 12:47 | disposition home or self-care (01) ==
PROVIDERS: PCP Internal Medicine; Visit Provider Orthopaedic Surgery
DX: M75.52 Bursitis of left shoulder (principal); E11.39 Type 2 diabetes mellitus with other diabetic ophthalmic complication; E11.65 Type 2 diabetes mellitus with hyperglycemia
CPT/HCPCS: 20610; 99204

== ENCOUNTER 2025-04-01 08:50 | Outpatient (RCR) | payer BC, SELFPAY | END 2025-04-12 13:53 | disposition home or self-care (01) | LOC: HO.PT 08:50 | PROVIDERS: PCP Internal Medicine; Visit Provider Orthopaedic Surgery | DX: M75.52 Bursitis of left shoulder (principal) | CPT/HCPCS: 97110; 97140; 97162 ==

== ENCOUNTER 2025-04-22 07:51 | Outpatient (REF) | payer BC, SELFPAY ==
[2025-04-22 09:19] LABS: Hematocrit 47.4 % (42.0-52.0); Hemoglobin 15.5 g/dl (14.0-18.0); Mean Corpuscular HGB Conc 32.7 g/dl (31.0-36.0); Mean Corpuscular Hemoglobin 30.2 pg (27.0-33.0); Mean Corpuscular Volume 92.4 fL (80.0-98.0); Mean Platelet Volume 9.4 fL (9.4-12.4); Platelet Count 316 X10*3/uL (160-400); Red Blood Count 5.13 X10*6/uL (4.60-5.80); Red Cell Distribution Width 13.2 % (11.0-16.0); White Blood Count 10.2 X10*3/uL (4.8-10.8)
[2025-04-22 09:20] LABS: Appearance Urine Clear; Color Urine Yellow; Glucose Urine UA >=1000 mg/dL (Negative); Leukocyte Esterase Urine Negative (Negative); Nitrite Urine Negative (Negative); Specific Gravity - Urine 1.025 (1.005-1.025); UMIC TRIGGER UA YES; Urine Blood Negative (Negative); Urine Ketones Negative (Negative); Urine Protein Negative (Neg-Trace)
[2025-04-22 09:26] LABS: Bacteria Urine None Seen (None Seen); Hyaline Casts Urine 0-2 /LPF (0-2); RBC Urine 0-2 /HPF (0-2); Squamous Epithelial Cell Urine 0-2 /HPF (0-2); WBC Urine 0-5 /HPF (0-5)
[2025-04-22 11:05] LABS: Microalbum/Creatinine Ratio Ur 14.8 ug/mg cr (<30)
[2025-04-22 11:23] LABS: Alanine Aminotransferase 72 U/L (0-40); Albumin Level 4.4 g/dL (3.5-5.0); Alkaline Phosphatase 61 U/L (39-117); Anion Gap 13 (12-20); Aspartate Amino Transferase 43 U/L (5-37); Bilirubin Direct 0.2 mg/dL (0.0-0.5); Bilirubin Total 0.4 mg/dL (0.0-1.0); Blood Urea Nitrogen 18 mg/dL (9-16); Calcium 9.5 mg/dL (8.4-10.2); Carbon Dioxide 29 mmol/L (22-29); Chloride 104 mmol/L (96-108); Cholesterol 153 mg/dL (<200); Estimated Glomerular Filt Rate 53; Glucose Random 153 mg/dL (60-115); HDL Cholesterol 34 mg/dL (>40); LDL Cholesterol Calculated 86 mg/dL (<100); Potassium 4.5 mmol/L (3.3-5.1); Sodium 141 mmol/L (135-145); Total Protein 7.3 g/dL (6.5-8.0); Triglycerides 165 mg/dL (<150)
[2025-04-22 11:47] LABS: Thyroid Stimulating Hormone 2.45 uIU/mL (0.32-4.0)
== END 2025-04-22 07:52 | disposition home or self-care (01) ==
LOC: HO.LAB 07:51
PROVIDERS: PCP Internal Medicine; Visit Provider Internal Medicine
DX: E11.39 Type 2 diabetes mellitus with other diabetic ophthalmic complication (principal); E11.65 Type 2 diabetes mellitus with hyperglycemia; E66.9 Obesity, unspecified; I10 Essential (primary) hypertension; E78.00 Pure hypercholesterolemia, unspecified
CPT/HCPCS: 36415; 80048; 80061; 80076; 81001; 82043; 82570; 83036; 84443; 85027

== ENCOUNTER 2025-04-22 07:51 | Outpatient (AMB) | payer BC, SELFPAY ==
--- NOTE | 2025-04-22 07:59 | A.OFFPC_ITS ---
Vital Signs 04/22/25 08:00 Height 5 ft 8 in Weight 205 lb 2 oz BMI 31.2 BP 120/72 Blood Pressure Location Lt brachial Position Sitting Pulse 79 Pulse Source Pulse Oximeter Temp 96.6 F L Temp Source Temporal Artery Scan Pulse Oximetry (%) 95 Oxygen Delivery Method Room Air Intake Visit Reasons: 6mth f/u Chol/DM - see comments Intake Note: Patient is here to follow up on DM, Cholesterol. Rate Reviewer Required: No Vehicle Washer: Not Required per policy Accompanied by: Self / Same As Patient Allergies penicillin V Allergy (Unknown, Verified 04/22/25 08:25) rash and fever tetracycline Allergy (Unknown, Verified 04/22/25 08:25) red rash on body and inflammation empagliflozin [From Jardiance] Adverse Reaction (Intermediate, Verified 04/22/25 08:25) Abdominal Pain Medication List - Last Reconciled 04/22/25 by Suraj Coon MD dulaglutide (Trulicity) 0.75 mg (0.5 mL) subcut QWEEK lisinopril 10 mg PO DAILY metformin 1,000 mg PO BID pioglitazone 15 mg PO DAILY Tobacco use date assessed: 04/22/25 Dental Screening Dental Screen Date: 04/22/25 Did you have a dental visit in the last 12 months?: No Did you have a dental problem in the last 6 months where you did not have access to dental care?: No Was dental information given to patient?: Patient has dentist [facility] Medical History Osteoarthritis of left shoulder Obstructive sleep apnea Hypercholesterolemia Essential (primary) hypertension DM (diabetes mellitus) type II uncontrolled with eye manifestation Surgical History History of circumcision H/O colonoscopy (~02/13/24) Family History Mother No problems noted. Father No problems noted. Social History Housing: House Alcohol intake: never Patient Tobacco Use Status: Never used Tobacco e-Cigarette/Vaping Use: Never Used Second Hand Smoke Exposure: No service: Yes Current occupational status: employed Current occupation: [employer] Cognitive needs: No Hearing needs: No Vision needs: Yes (Glasses) Questionnaire PHQ-9 Over the last 2 weeks, how often have you been bothered by any of the following problems? 1. Little interest or pleasure in doing things: not at all 2. Feeling down, depressed, or hopeless: not at all 3. Trouble falling or staying asleep, or sleeping too much: not at all 4. Feeling tired or having little energy: not at all 5. Poor appetite or overeating: not at all 6. Feeling bad about yourself - or that you are a failure or have let yourself or your family down: not at all 7. Trouble concentrating on things, such as reading the newspaper or watching television: not at all 8. Moving or speaking so slowly that other people could have noticed. Or the opposite - being so fidgety or restless that you have been moving around a lot more than usual: not at all 9. Thoughts that you would be better off or of hurting yourself in some way: not at all Total score: 0 Depression Screening Interpretation: Negative Depression Screening Done: Yes Source: Developed by Drs. Slade Mckeon, Dot Lennon, Allen Drummond and colleagues, with an educational kerrie from [employer]. Thrive Questionnaire Date Thrive assessed: 04/22/25 I am a: Patient What is your living situation today?: I have a steady place to live Within the past 12 months, did the food you bought not last and you didn't have the money to get more?: Often true Within the past 12 months, did you worry whether your food would run out before you got money to buy more?: Often true Do you have trouble paying for medicines?: No Do you have trouble getting transportation to medical appointments?: No Do you have trouble paying your heating and electricity bill?: No Do you have trouble taking care of your child, family member or friend?: I choose not to answer this question Do you have trouble with day-to-day activities such as bathing, preparing meals, shopping, managing finances, etc.?: I choose not to answer this question Are you currently unemployed and looking for a job?: No Are you interested in more education?: No Please select the resources that you would like help with: None Currently or been in a relationship where the following occur: I choose not to answer THRIVE Score: 2 AUDIT C Alcohol Use Questionnaire (AUDIT-C) 1. How often do you have a drink containing alcohol?: Never Total Score: 0 HANDY-7 AMB Questionnaire HANDY-7 Date HANDY - 7 assessed: 04/22/25 Feeling nervous, anxious, or on edge: 0 = Not at all Not being able to stop or control worryin = Not at all Worrying too much about different things: 0 = Not at all Trouble relaxin = Not at all Being so restless that it is hard to sit still: 0 = Not at all Becoming easily annoyed or irritable: 0 = Not at all Feeling afraid as if something awful might happen: 0 = Not at all Total HANDY-7 score (0-4 normal; 5-9 mild; 10-14 moderate; 15-21 severe): 0 Source: Developed by Drs. Slade Mckeon, Dot Lennon, Allen Drummond and colleagues, with an educational kerrie from [employer]. Physical exam (Primary Care) Vital Signs: Last Vital Signs Temp 96.6 F L 04/22/25 08:00 Pulse 79 04/22/25 08:00 BP 120/72 04/22/25 08:00 Pulse Ox 95 04/22/25 08:00 Oxygen Delivery Method Room Air 04/22/25 08:00 Care Plan Goal for BP management: BP in range BMI result Body Mass Index 31.2 BMI Assessment/Plan discussion: High (one pound per week weight loss suggested) BMI High, discussed plan: lifestyle and weight reduction Tobacco/Smoking Status: Tobacco use Status Tobacco use date assessed 04/22/25 04/22/25 08:09 Patient Tobacco Use Status Never used Tobacco 04/22/25 08:09 e-Cigarette/Vaping Use Never Used 04/22/25 08:09 PHQ-9: PHQ-9 Score PHQ-9: Total score 0 04/22/25 08:09 Depression Screening Interpretation: Negative Thrive Assessment: Date of Thrive Assessment Date Thrive assessed 04/22/25 04/22/25 08:09 Currently or been in a relationship where the following occur: I choose not to answer Advance Care Planning discussion: Exists, not on file Date of discussion: 04/22/25 Who was present: Patient Forms completed: Health Care Proxy and [facility] Actual minutes spent: 5 Results AMB Hemoglobin A1c AMB Hemoglobin A1c 7.7 % Last Edit by SERGEY Walker on 04/22/25 08:14 Coding Level of Care Code Est Pt Level 4 (41700) Complex EM visit Add On G2211 Diagnoses DM (diabetes mellitus) type II uncontrolled with eye manifestation E11.39; E11.65 Essential (primary) hypertension I10 Obesity (BMI 30.0-34.9) E66.9 Hypercholesterolemia E78.00 Additional Codes Vital Signs *Quality* - Advance Care Planning discussion: Exists, not on file ([id number]) Assessment & Plan Assessment & Plan (1) DM (diabetes mellitus) type II uncontrolled with eye manifestation: Code(s): E11.39 - Type 2 diabetes mellitus with other diabetic ophthalmic complication; E11.65 - Type 2 diabetes mellitus with hyperglycemia Category: Medical Plan: A1c is rising. No change in medication dosage. Advised him to have better portion control and decrease carb intake (2) Essential (primary) hypertension: Code(s): I10 - Essential (primary) hypertension Category: Medical Plan: BP is in range. Continue current meds (3) Obesity (BMI 30.0-34.9): Code(s): E66.9 - Obesity, unspecified Category: Medical Plan: Counselling on diet and exercise (4) Hypercholesterolemia: Code(s): E78.00 - Pure hypercholesterolemia, unspecified Category: Medical Plan: Continue statins Plan History of Present Illness The patient is a 64-year-old male presenting with a routine follow-up for the management of Type 2 Diabetes Mellitus and Hypertension. He takes his medications regularly, including a weekly injection for diabetes, and performs home glucose monitoring every other day with readings between 120-130 mg/dL. His blood pressure is maintained within the range of 120/125 mmHg to 125/130 mmHg, with no recorded readings exceeding 200 mmHg. He reports no gastrointestinal discomfort and continues to actively manage his carbohydrate intake, although he acknowledges a high consumption of bread. Additionally, the patient mentions his occupational responsibilities provide substantial physical activity, which includes walking and handling equipment. He maintains good visual acuity and experiences no difficulties with night driving, confirming no recent changes in eyesight. The patient also has no concerns regarding his sleep, affirming that he sleeps very well. Social History - Exercise: The patient engages in physical activity primarily through occupational responsibilities that involve walking and carrying equipment. - Nutrition: He consumes a significant amount of bread and is attempting to manage his carbohydrate intake. - Functional Status: Active in his job, which requires regular movement and physical exertion. Review of Systems - Cardiovascular: Denies any significant issues with blood pressure control. - Endocrine: Reports regular glucose monitoring with levels between 120-130 mg/dL. - Gastrointestinal: Denies any stomach pain. - Neurological: Denies any changes in vision and reports good night vision. - General: Denies any sleep disturbances, reports sleeping well. Physical Exam General: Cooperative and healthy appearing Nutritional Appearance: Well nourished Orientation/consciousness: Patient oriented x3 Limitations: No limitations Head: Normal to inspection General: Appearance normal, both eyes and all related structures Neck: Normal visual inspection Chest: Normal palpation of entire chest wall Respiratory: Normal respiratory effort Neurology: Patient oriented x3 Results Plan 1. Type 2 Diabetes Mellitus - Continuation of medication and weekly injection, regular glucose monitoring with current levels indicating adequate management, emphasis on dietary adjustments to reduce carbohydrate intake, particularly bread. 2. Hypertension - Maintain current antihypertensive therapy due to satisfactory control, encourage adherence to lifestyle modifications such as exercise and diet management. Discussion Notes During our discussion, I confirmed with the patient that he is adhering to his current diabetes and hypertension treatment regimens. His blood glucose and blood pressure readings indicate good control. We reviewed dietary management, emphasizing the importance of reducing carbohydrate intake to better manage his diabetes. His engagement in physical activities related to work was noted to be sufficient for his current health status. No adjustments were made to his treatment plan; however, continued adherence and monitoring of his health status were encouraged. We agreed on the current management plan, recognizing its effectiveness in maintaining control of his conditions and no additional interventions were required. Patient Instructions - Continue taking all prescribed medications as directed. - Monitor your blood sugar levels every other day and keep a log. - Try to reduce carbohydrate intake, especially foods like bread. - Maintain physical activity at work?consider additional exercise if possible. - Keep monitoring your blood pressure and ensure it stays within the target range. - Contact the office if any concerns arise or if readings become inconsistent with current ranges. - Follow-up as scheduled for routine monitoring and care. Orders: Orders AMB Hemoglobin A1c Today E11.39 - Type 2 diabetes mellitus with other diabetic ophthalmic complication, E11.65 - Type 2 diabetes mellitus with hyperglycemia Complete Blood Count no Diff Today E11.39 - Type 2 diabetes mellitus with other diabetic ophthalmic complication, E11.65 - Type 2 diabetes mellitus with hyperglycemia, E66.9 - Obesity, unspecified, E78.00 - Pure hypercholesterolemia, unspecified, I10 - Essential (primary) hypertension Basic Metabolic Panel Today E11.39 - Type 2 diabetes mellitus with other diabetic ophthalmic complication, E11.65 - Type 2 diabetes mellitus with hyperglycemia, E66.9 - Obesity, unspecified, E78.00 - Pure hypercholesterolemia, unspecified, I10 - Essential (primary) hypertension Thyroid Stimulating Hormone Today E11.39 - Type 2 diabetes mellitus with other diabetic ophthalmic complication, E11.65 - Type 2 diabetes mellitus with hyperglycemia, E66.9 - Obesity, unspecified, E78.00 - Pure hypercholesterolemia, unspecified, I10 - Essential (primary) hypertension UA and rflx microscopic Today E11.39 - Type 2 diabetes mellitus with other diabetic ophthalmic complication, E11.65 - Type 2 diabetes mellitus with hyperglycemia, E66.9 - Obesity, unspecified, E78.00 - Pure hypercholesterolemia, unspecified, I10 - Essential (primary) hypertension Lipid Panel Today E11.39 - Type 2 diabetes mellitus with other diabetic ophthalmic complication, E11.65 - Type 2 diabetes mellitus with hyperglycemia, E66.9 - Obesity, unspecified, E78.00 - Pure hypercholesterolemia, unspecified, I10 - Essential (primary) hypertension Liver Panel Today E11.39 - Type 2 diabetes mellitus with other diabetic ophthalmic complication, E11.65 - Type 2 diabetes mellitus with hyperglycemia, E66.9 - Obesity, unspecified, E78.00 - Pure hypercholesterolemia, unspecified, I10 - Essential (primary) hypertension Microalbumin, Random (w Creat) Today E11.39 - Type 2 diabetes mellitus with other diabetic ophthalmic complication, E11.65 - Type 2 diabetes mellitus with hyperglycemia, E66.9 - Obesity, unspecified, E78.00 - Pure hypercholesterolemia, unspecified, I10 - Essential (primary) hypertension
[2025-04-22 08:00] VITALS: BP 120/72; PULSE 79; TEMP 35.9; O2SAT 95; BMI 31.2
== END 2025-04-22 08:22 | disposition home or self-care (01) ==
PROVIDERS: PCP Internal Medicine; Visit Provider Internal Medicine
DX: E11.39 Type 2 diabetes mellitus with other diabetic ophthalmic complication (principal); E11.65 Type 2 diabetes mellitus with hyperglycemia; E66.9 Obesity, unspecified; Z68.31 Body mass index [BMI] 31.0-31.9, adult; I10 Essential (primary) hypertension; E78.00 Pure hypercholesterolemia, unspecified; Z00.00 Encounter for general adult medical examination without abnormal findings